=== PATIENT | female | born 1955 | race Caucasian/White ===

== ENCOUNTER 2017-08-13 21:25 | Emergency (ER) | payer MEDICAID, SELFPAY ==
--- NOTE | 2017-08-13 13:31 | EKG12_ITS ---
Test Reason : CP Blood Pressure : / mmHG Vent. Rate : 081 BPM Atrial Rate : 081 BPM P-R Int : 170 ms QRS Dur : 098 ms QT Int : 388 ms P-R-T Axes : 056 100 046 degrees QTc Int : 450 ms Normal sinus rhythm Normal ECG Confirmed by YI ANDERSEN, BALAJI ([id number]), greeting card editor ANDREW ROBINS ([id number]) on 08/17/2017 5:41:35 PM Referred By: YUE Confirmed By:BALAJI RICHMOND MD
--- NOTE | 2017-08-13 20:55 | RAD_ITS ---
STUDY: X-RAY CHEST REASON FOR EXAM: Female, 61 years old. Pressure IN chest TECHNIQUE: Single AP portable view of the chest. COMPARISON: None. FINDINGS: Chronic appearing increased interstitial lung markings. There is no demonstrated pleural abnormality. Normal size heart. Normal mediastinum and garrett. Normal visualized pulmonary arteries. Normal visualized aortic arch and descending thoracic aorta. Normal visualized thoracic spine. Normal visualized ribs, clavicles, and shoulders. There is no demonstrated abnormality of the visualized soft tissue structures of the upper abdomen. RAD/Chest 1 View (Portable) IMPRESSION: Normal x-ray examination of the chest. Electronically Signed: Agustin Covington MD at 21:16 EDT , Service support ,
--- NOTE | 2017-08-13 21:25 | DT_ITS ---
This patient was seen during an EMR downtime August 08, 2017 - August 15, 2017. This patient may have a combination of paper and electronic documentation or all paper documentation. All documentation is viewable within the e-chart portion of [facility] for each patient visit.
[2017-08-16 17:28] LABS: Red Blood Count 5.47 M/mm3 (4.2-5.4); White Blood Count 6.3 K/mm3 (4.4-11.0)
[2017-08-16 17:29] LABS: Absolute Lymphocyte Count 2.08 X10^3/ul (0.83-4.51); Absolute Neutrophil Count 3.5 X10^3/uL (2.0-7.7); Basophil# 0.04 X10^3/uL; Basophil% 0.6 % (0-1); Eosinophil# 0.08 X10^3/uL; Eosinophils% 1.3 % (0-5); Hematocrit 50.4 % (37-47); Hemoglobin 16.8 g/dl (12.0-15.0); Lymphocyte # 2.08 X10^3/ul (4.0); Lymphocyte % 33.2 % (19-41); Mean Corp Hgb Conc 33.3 g/gl (32-36); Mean Corpuscular Hgb 30.7 pg (27.0-32.0); Mean Corpuscular Volume 92.1 fL (81-99); Mean Platelet Vol. 10.9 fl (6.2-12.0); Monocyte% 9.6 % (0-10); Neutrophil # 3.45 X10^3/uL (2.7-7.7); Neutrophil % 55.1 % (47-70); POSITIVE COUNT NO; POSITIVE DIFFERENTIAL NO; POSITIVE MORPHOLOGY NO; Platelet Count 222 K/mm3 (150-450); RBC Distribution Width CV 13.6 % (11.6-14.6); RBC Distribution Width SD 45.3 fl (35.1-43.9)
[2017-08-16 20:06] LABS: BUN 10 mg/dL (7-18); BUN/Creat Ratio 15.2 RATIO (10-20); Calcium,Total 8.6 mg/dL (8.5-10.1); Creatinine, Serum 0.66 mg/dL (0.55-1.02); EST Glomerular Filtration Rate 97 mL/min (>60); Est Glom Filt Rate - Afr Amer 118 mL/min (>60); Glucose 87 mg/dL (74-106)
[2017-08-16 20:07] LABS: Anion Gap 11 (5-15); Chloride 106 mmol/L (98-107); Potassium 4.5 mmol/L (3.5-5.1); Sodium Level 141 mmol/L (136-145)
== END 2017-08-13 22:48 | disposition home or self-care (01) ==
LOC: ED 08-14 16:09
PROVIDERS: Emergency Provider Emergency Medicine
DX: R07.89 Other chest pain (principal); F10.129 Alcohol abuse with intoxication, unspecified; Y90.7 Blood alcohol level of 200-239 mg/100 ml
CPT/HCPCS: 36415; 71045; 80048; 80320; 84484; 85025; 93005; 96360; 99285; J7030; A4216; G0480

== ENCOUNTER 2019-01-13 12:00 | Emergency (ER) | payer MEDICAID, SELFPAY ==
[2019-01-13 12:01] VITALS: BP 170/110; PULSE 89; RESP 18; TEMP 36.8; O2SAT 96; BMI 33.6
--- NOTE | 2019-01-13 12:10 | EKG12_ITS ---
Test Reason : CP Blood Pressure : / mmHG Vent. Rate : 080 BPM Atrial Rate : 080 BPM P-R Int : 158 ms QRS Dur : 094 ms QT Int : 384 ms P-R-T Axes : 061 113 053 degrees QTc Int : 442 ms Normal sinus rhythm Right axis deviation Abnormal ECG Confirmed by YI ANDERSEN, BALAJI ([id number]), editor magazine JANUSZ FLORES ([id number]) on 01/16/2019 1:53:35 PM Referred By: LILLIAN Confirmed By:BALAJI RICHMOND MD
--- NOTE | 2019-01-13 12:11 | ED.VISSUMM ---
- ER Visit Summary Date of Service: 01/13/19 Chief Complaint: Chest pain History of Present Illness: The patient is a 63 F who presents with back pain and chest pain. It started about an hour ago. She was laying the baby down into the crib when she started having pain across her back. Goes from her scapula to scapula. It is worse with movement. The pain radiates to her chest. She feels a tightness in her chest. The pain in her back is sharp. Moving makes the pain worse. She has no nausea or vomiting. No shortness of breath. She took nothing for this at home. She has no cardiac history. Her only risk factor is that she is a smoker. Physical Examination: Vital signs reviewed. HEENT exam unremarkable. Heart is regular rate and rhythm without murmurs. Lungs are clear to auscultation. Abdomen is soft and nontender. Her back is not tender anywhere. Extremities reveal no edema. Peripheral pulses are equal. Skin exam normal. Neurologic exam normal. Test Results: EKG is sinus rhythm with no ST changes. Rate of 80. Laboratory studies normal. Glucose 109. Chest x-ray per my interpretation is unremarkable. Emergency Department Course and Treatment: Patient was given aspirin but continued to have pain so she is given Toradol. This pain likely originates in the back is muscular. She is now having some tightening in the back. Patient will be given Toradol here. I will give her naproxen and Flexeril for home. She will follow-up with her PCP. Treatment Plan: [] Disposition: Discharge Impression: Thoracic strain This note was generated with [employer] dictation software. It may contain incorrect words, spelling, and punctuation that were not noted in review of the chart prior to signing ED Disposition - Plan for ED Patient: Referrals: Care Physician,No Primary [Primary Care Provider] -
[2019-01-13 12:14] VITALS: O2SAT 95
[2019-01-13] MEDS: Aspirin 81 MG TAB.CHEW 324 MG PO (12:16)
--- NOTE | 2019-01-13 12:19 | RAD_ITS ---
STUDY: X-RAY CHEST REASON FOR EXAM: Female, 63 years old. Chest pain TECHNIQUE: Single AP portable view of the chest. COMPARISON: 08/13/2017 FINDINGS: The lungs are clear and expanded. There is no demonstrated pleural abnormality. Normal size heart. Normal mediastinum and garrett. Normal visualized pulmonary arteries. Normal visualized aortic arch and descending thoracic aorta. Normal visualized thoracic spine. Normal visualized ribs, clavicles, and shoulders. There is no demonstrated abnormality of the visualized soft tissue structures of the upper abdomen. RAD/Chest 1 View (Portable) IMPRESSION: Normal x-ray examination of the chest. Electronically Signed: Rambo Kaur DO at 13:35 EST Tel , Service support ,
[2019-01-13 12:31] LABS: Basophil# 0.05 X10^3/uL; Basophil% 0.7 % (0-1); Eosinophil# 0.11 X10^3/uL; Eosinophils% 1.6 % (0-5); Hematocrit 49.8 % (37-47); Hemoglobin 16.5 g/dL (12.0-15.0); Lymphocyte % 27.8 % (19-41); Mean Corp Hgb Conc 33.1 g/dL (32-36); Mean Corpuscular Hgb 30.5 pg (27.0-32.0); Mean Corpuscular Volume 92.1 fL (81-99); Mean Platelet Vol. 10.8 fl (6.2-12.0); Monocyte# 0.75 X10^3/uL; NRBC Flagged by Analyzer 0 % (0-5); Neutrophil % 58.6 % (47-70); Platelet Count 265 K/mm3 (150-450); RBC Distribution Width CV 13.1 % (11.6-14.6); RBC Distribution Width SD 44.1 fl (35.1-43.9); Red Blood Count 5.41 M/mm3 (4.2-5.4); White Blood Count 6.8 K/mm3 (4.4-11.0)
[2019-01-13 12:36] LABS: Anion Gap 6 (5-15); BUN 9 mg/dL (7-18); BUN/Creat Ratio 12.3 RATIO (10-20); Calcium,Total 9.4 mg/dL (8.5-10.1); Chloride 104 mmol/L (98-107); Creatinine, Serum 0.73 mg/dL (0.55-1.02); EST Glomerular Filtration Rate 86 mL/min (>60); Est Glom Filt Rate - Afr Amer 104 mL/min (>60); Glucose 109 mg/dL (74-106); Potassium 3.7 mmol/L (3.5-5.1); Sodium Level 138 mmol/L (136-145)
--- NOTE | 2019-01-13 13:02 | ED.DEP ---
ED Disposition - Plan for ED Patient: Disposition: Home or Assisted Living Instructions: Thoracic Strain Prescriptions: cycloBENZAPRine HCl [Flexeril] 10 mg PO TID PRN #20 tab PRN Reason: Muscle Spasm Prescription Printed Naproxen [Naprosyn] 500 mg PO BID PRN #20 tab Prescription Printed Referrals: Care Physician,No Primary [Primary Care Provider] -
[2019-01-13] MEDS: Ketorolac 30 MG/ML Syringe IV (13:16)
[2019-01-13 13:21] VITALS: BP 152/74; PULSE 72; RESP 16; O2SAT 95
== END 2019-01-13 13:40 | disposition home or self-care (01) ==
PROVIDERS: Emergency Provider Emergency Medicine
DX: S29.012A Strain of muscle and tendon of back wall of thorax, initial encounter (principal); F17.200 Nicotine dependence, unspecified, uncomplicated; X58.XXXA Exposure to other specified factors, initial encounter; Y93.89 Activity, other specified; Y92.003 Bedroom of unspecified non-institutional (private) residence as the place of occurrence of the external cause; Y99.8 Other external cause status
CPT/HCPCS: 71045; 80048; 84484; 85025; 93005; 96374; 99285; A4216

== ENCOUNTER 2023-08-07 15:30 | Emergency (ER) | payer MEDICARE, MEDICAID, SELFPAY ==
[2023-08-07 15:32] VITALS: BP 163/75; PULSE 73; RESP 16; TEMP 36.8; O2SAT 95; BMI 35.2
--- NOTE | 2023-08-07 15:45 | EDS_ITS ---
HPI History of Present Illness Chief Complaint: Back Narrative Narrative: 67-year-old female, past medical history of chronic back pain presents via EMS with a catch in her thoracic to lumbar back area. She states it feels like muscle cramping in a straight line across her back. She did not fall, but this happened when she tried to stand up from the couch. While she states that it is between her shoulder blades to triage, its actually a little bit lower in her thoracic spine. She denies any exacerbating or alleviating factors but certain positions make it worse and make her back muscles cramp and spasm. She denies any fevers or chills, no loss of bowel or bladder, no other symptoms. It does not radiate down her legs. It is in a straight line across her thoracic to lumbar spine. She states there are times when this happens and her back catches when she moves. Usually is her lower back. She has had to come to the emergency department previously. [facility] Medical History Back pain Bronchitis Home Medications ?Medication ?Instructions ?Recorded ?Last Taken ?Type cyclobenzaprine 10 mg tablet 10 mg PO TID PRN Muscle Spasm #20 01/13/19 Unknown Rx tabs naproxen 500 mg tablet 500 mg PO BID PRN #20 tabs 01/13/19 Unknown Rx cyclobenzaprine 10 mg tablet 10 mg PO TID PRN Muscle Spasm #20 08/07/23 Unknown Rx TABLETS naproxen 500 mg tablet (Naprosyn) 500 mg PO BID PRN pain #20 tabs 08/07/23 Unknown Rx Allergy/AdvReac Type Severity Reaction Status Date / Time No Known Allergies Allergy Verified 01/13/19 12:00 Social History Smoking Status: Current every day smoker tobacco type: cigarettes ROS ROS ED ROS Narrative Constitutional: No fever, no chills. HEENT: No sore throat. No neck pain. No loss of vision. No rhinorrhea. Cardiovascular: No chest pain. No palpitations. No pedal edema. Respiratory: No cough, no shortness of breath. Abdominal: No abdominal pain. No nausea. No vomiting. Genitourinary: No dysuria. No hematuria. Musculoskeletal: No myalgias. No arthralgias. Positive lower thoracic to upper lumbar back pain, worse with movement. Feels like muscle spasming and line across her back. Neurologic: No headaches. No dizziness. No lightheadedness. Skin: No rash. No change in color. Psychiatric: No depression. No anxiety. EXAM Physical Exam Narrative Exam Narrative: Afebrile. Vital signs noted. HEENT: Normocephalic. Atraumatic. PERRL, EOMI. Neck soft and supple. No point tenderness or step off. Cardiovascular: Regular rate and rhythm. No murmurs, rubs, or gallops appreciated. Respiratory: No tachypnea. Lungs clear to auscultation bilaterally. Gastrointestinal: Abdomen soft, nontender, with normoactive bowel sounds. No rebound or guarding. Neurological: Awake. Alert. Nonfocal, nonlateralizing. Skin: No rash. Normal color. No pallor. Musculoskeletal: No pedal edema. Full range of motion extremities. Mild tenderness to palpation lower thoracic paraspinal muscles. No vertebral point tenderness or bony step-off. Limited range of motion of torso. Const Vital Signs: 08/07/23 15:32 Temperature 98.2 F Temperature Source Oral Pulse Rate 73 Respiratory Rate 16 Blood Pressure 163/75 H Blood Pressure Mean 104 Pulse Ox 95 Oxygen Delivery Method Room Air MDM MDM MDM Narrative Medical decision making narrative: That is probably more musculoskeletal back pain and spasming. I have low suspicion for aortic dissection because her pain is too low and is not between her shoulder blades. Additionally, I have low suspicion for cauda equina syndrome or lumbar spine problems as she is neurovascular intact distally in the history and physical does not support this. I reviewed her prior records. She used to take cyclobenzaprine and naproxen. She will be given intramuscular Toradol and Norflex here and x-rays obtained of the thoracic spine. X-rays of the thoracic spine interpreted by myself independently shows no evidence of acute fracture, there are degenerative changes. I reviewed the radiology report which confirms my independent interpretation. I reviewed her prior records and she has been seen for back pain and strain in the past. She had been written for cyclobenzaprine and naproxen. Repeat examination at approximately 1710 does show that she feels improved. I feel she can be dischar [facility] safely home with follow-up to her primary care provider. She may need physical therapy, but she states that she had performed that remotely in the past and it hurt her too much so she stopped going. I did write her new prescriptions for Flexeril and naproxen. Return instructions to the emergency department were reviewed. Disposition is discharged home in stable condition. Radiography Diagnostic Testing: Clinical Impression(s) from Imaging Studies Thoracic Spine X-Ray 08/07/23 16:25 IMPRESSION: There are degenerative changes as noted above. Electronically Signed: Agustin Covington MD at 16:57 EDT , Discharge Plan Triage Chief Complaint: Back ED Provider: Dakota Smith Dx/Rx/DC Orders Clinical Impression: Strain of thoracic back region, Acute thoracic back pain, Muscle spasm of back Instructions: ED Back Pain (Acute or Chronic), ED Back Spasm, No Trauma, ED Back Sprain/Strain Prescriptions: New cyclobenzaprine 10 mg tablet 10 mg PO TID PRN (Reason: Muscle Spasm) Qty: 20 0RF naproxen [Naprosyn] 500 mg tablet 500 mg PO BID PRN (Reason: pain) Qty: 20 0RF No Action cyclobenzaprine 10 MG tablet 10 mg PO TID PRN (Reason: Muscle Spasm) Qty: 20 0RF naproxen 500 MG tablet 500 mg PO BID PRN Qty: 20 0RF Primary Care Provider: Care Physician,No Primary Referrals: Matt Frank MD [Med Staff - Active Staff] - 1 Week Care Physician,No Primary [Primary Care Provider] - Print Language: Azeri Disposition Disposition: Home, Self Care
[2023-08-07] MEDS: Ketorolac 60 MG/2 ML Vial IM (15:56)
[2023-08-07] MEDS: Orphenadrine 60 MG/2 ML Ampul IM (15:56)
--- NOTE | 2023-08-07 16:25 | RAD_ITS ---
STUDY: X-RAY - THORACIC SPINE REASON FOR EXAM: Female, 67 years old. Pain TECHNIQUE: XR Spine Thoracic 3 Views COMPARISON: None FINDINGS: Normal kyphosis of the thoracic spine. There is no substantial scoliosis. There is multilevel endplate spondylosis of the thoracic vertebrae. There is multilevel disc space narrowing of the thoracic spine. The soft tissue structures are unremarkable. RAD/Thoracic Spine 3 Views IMPRESSION: There are degenerative changes as noted above. Electronically Signed: Agustin Covington MD at 16:57 EDT ,
[2023-08-07 17:14] VITALS: BP 133/68; PULSE 62; RESP 18; TEMP 37; O2SAT 95
== END 2023-08-07 17:18 | disposition home or self-care (01) ==
PROVIDERS: Emergency Provider Emergency Medicine; Visit Provider Emergency Medicine
DX: S39.012A Strain of muscle, fascia and tendon of lower back, initial encounter (principal); M62.830 Muscle spasm of back; F17.210 Nicotine dependence, cigarettes, uncomplicated; M54.6 Pain in thoracic spine; G89.29 Other chronic pain; X58.XXXA Exposure to other specified factors, initial encounter
CPT/HCPCS: 72072; 96372; 99282

== ENCOUNTER 2024-03-20 07:28 | Emergency (ER) | payer MEDICARE, MEDICAID, SELFPAY ==
[2024-03-20 07:30] VITALS: BP 123/60; PULSE 77; RESP 16; TEMP 36.6; O2SAT 95
--- NOTE | 2024-03-20 07:30 | ED.RN ---
[facility]-[id number]
--- NOTE | 2024-03-20 08:13 | EX.ED.DYSGE1 ---
HPI History of Present Illness Chief Complaint: Numb/Ting Informant: patient Onset/Context/Timing Onset: Today Context: Sudden Onset Timing: Intermittent and Lasts (Few minutes) Quality: Weakness Location: Left hand Worsened by: Nothing Relieved by: Nothing Narrative Narrative: Patient presents with weakness to her left hand that began this morning. Patient states she woke up at 6:30 AM and she was fine. Patient states she was sitting and watching the news when she noted some tingling to her left hand. Patient states she had difficulty picking things up. Patient states she was able to move her fingers but they did not seem to work right. Patient states this only lasted for few minutes. Patient denies any numbness or weakness in her lower leg. Patient denies any weakness in her shoulder or elbow. Patient admits to a mild headache. Patient denies any chest pain or shortness of breath. Patient denies any nausea or vomiting. Patient denies any fevers or chills. [facility] Medical History Hx of fracture of lower leg Back pain Bronchitis Home Medications ?Medication ?Instructions ?Recorded ?Last Taken ?Type NK 03/20/24 Unknown History Allergy/AdvReac Type Severity Reaction Status Date / Time No Known Allergies Allergy Verified 03/20/24 07:30 Surgical History History of 2 sections Social History Smoking Status: Current every day smoker tobacco type: cigarettes ROS ROS ED Constitutional Constitutional ED: Denies chills or fever(s) Eyes Eyes: Reports blurry vision; Denies diplopia ENT ENT ED: Denies rhinorrhea or sore throat Cardiovascular Cardiovascular: Denies chest pain or palpitations Respiratory/Chest Respiratory/Chest: Denies cough or dyspnea Gastrointestinal Gastrointestinal: Denies nausea or vomiting Genitourinary Genitourinary ED: Denies dysuria or hematuria Musculoskeletal Musculoskeletal: Denies back pain or neck pain Integumentary Denies abscess or rash Neurologic Neurologic: Reports paresthesias LUE (Hand) and weakness; Denies headache(s) Allergic/Immunologic Allergic/Immunologic ED: Denies mouth swelling or urticaria EXAM Physical Exam Const Vital Signs: 03/20/24 07:30 03/20/24 07:40 03/20/24 09:29 Temperature 97.8 F Temperature Source Oral Pulse Rate 77 73 Respiratory Rate 16 16 Respiratory Effort Normal Non-Labored Respiratory Pattern Normal Blood Pressure 123/60 H 131/76 H Blood Pressure Mean 81 94 Pulse Ox 95 94 Oxygen Delivery Method Room Air Room Air Positive well nourished and well developed General Appearance ED: well developed and NAD HEENT Reports moist mucous membranes Neck supple and no JVD Resp normal respiratory effort and clear to auscultation bilaterally Cardio regular rate and regular rhythm GI non-tender and non-distended Palpation: soft Extremity normal to inspection General Extremety ED: Negative for edema or tenderness General Extremity: Negative for edema Neuro oriented x3, CN's II-XII intact bilaterally and no sensory deficits noted Sensorium / Orientation: alert Motor Exam: strength 5/5 throughout Psych mental status grossly normal MDM MDM MDM Narrative Medical decision making narrative: Differential diagnosis includes TIA, neuropraxia, paresthesias, electrolyte abnormality, and anxiety. CT scan of the brain will be obtained to assess for intracranial bleeding and stroke. CBC will be obtained to assess for leukocytosis and anemia. Basic metabolic profile will be obtained to assess for electrolyte abnormality and renal function. Urinalysis will be obtained to assess for urinary tract infection and hematuria. Lab Data Attestation: I reviewed the patient's lab results. Lab results narrative: CBC was reviewed and was essentially within normal limits. Basic metabolic profile was reviewed and was within normal limits. Urinalysis was reviewed. There is no evidence of urinary tract infection or hematuria. Labs: Laboratory Results - last 24 hr 03/20/24 03/20/24 08:00 10:24 WBC 6.9 RBC 5.16 Hgb 15.5 H Hct 47.3 H MCV 91.7 MCH 30.0 MCHC 32.8 RDW Std Deviation 42.6 RDW Coeff of Zita 12.6 Plt Count 258 MPV 10.8 Immature Gran % (Auto) 0.300 Neut % (Auto) 55.4 Lymph % (Auto) 27.0 [place] % (Auto) 12.0 H Eos % (Auto) 4.4 Baso % (Auto) 0.9 Absolute Neuts (auto) 3.8 Absolute Lymphs (auto) 1.85 Nucleated RBC % 0 Sodium 139 Potassium 3.8 Chloride 106 Carbon Dioxide 29.0 Anion Gap 4 L BUN 12 Creatinine 0.62 Est GFR (MDRD) Af Amer 125 Est GFR (MDRD) Non-Af 103 BUN/Creatinine Ratio 19.5 Glucose 106 Calcium 9.0 Urine Color Yellow Urine Clarity Clear Urine pH 6.0 Ur Specific Show Low 1.015 Urine Protein Negative Urine Glucose (UA) Normal Urine Ketones Negative Urine Occult Blood Negative Urine Nitrite Negative Urine Bilirubin Negative Urine Urobilinogen Normal Ur Leukocyte Esterase Negative Urine RBC 0 SEEN Urine WBC 0 SEEN Ur Squamous Epith Cells 0 SEEN Urine Bacteria 0 SEEN Urine Mucus 0 SEEN Radiography Diagnostic Testing: Clinical Impression(s) from Imaging Studies Brain CT 03/20/24 09:48 IMPRESSION: Sinusitis as described. No acute intracranial abnormality is seen. Electronically Signed: Dakota Jaime MD at 10:15 EST , CT scan of the brain was obtained. There is no acute intracranial abnormality. There is some mild thickening of the ethmoid and left maxillary sinuses. This was interpreted by the radiologist and was also independently reviewed by myself. Treatment and Re-Evaluation :: Patient was given a dose of Tylenol here. Patient was advised of her findings. Patient was instructed to follow-up with her primary care physician in 5 to 7 days. Patient was instructed to return if worse in any way. Patient understood and was agreeable with the plan. All questions were answered. Discharge Plan Triage Chief Complaint: Numb/Ting Other Complaint: Hypertension ED Provider: Ashwin Myers Dx/Rx/DC Orders Clinical Impression: Paresthesias in left hand, Elevated blood pressure reading, Tobacco use disorder Instructions: ED Paraesthesias Prescriptions: No Action NK Primary Care Provider: Care Physician,No Primary Referrals: Care Physician,No Primary [Primary Care Provider] - Liz Bose DO Elio [[facility]] - 5-7 Days Print Language: Armenian Disposition Disposition: Home, Self Care
[2024-03-20 08:30] LABS: Absolute Lymphocyte Count 1.85 X10^3/uL (0.83-4.51); Absolute Neutrophil Count 3.8 X10^3/uL (2.0-7.7); Basophil# 0.06 X10^3/uL; Basophil% 0.9 % (0-1); Eosinophils% 4.4 % (0-5); Hematocrit 47.3 % (37-47); Hemoglobin 15.5 g/dL (12.0-15.0); Lymphocyte # 1.85 X10^3/ul (0.83-4.51); Mean Corp Hgb Conc 32.8 g/dL (32-36); Mean Corpuscular Volume 91.7 fL (81-99); Mean Platelet Vol. 10.8 fl (6.2-12.0); Monocyte# 0.82 X10^3/uL; NRBC Flagged by Analyzer 0 % (0-5); Neutrophil # 3.81 X10^3/uL (2.7-7.7); Neutrophil % 55.4 % (47-70); Platelet Count 258 K/mm3 (150-450); RBC Distribution Width CV 12.6 % (11.6-14.6); RBC Distribution Width SD 42.6 fl (35.1-43.9); Red Blood Count 5.16 M/mm3 (4.2-5.4); White Blood Count 6.9 K/mm3 (4.4-11.0)
[2024-03-20 08:42] LABS: Anion Gap 4 (5-15); BUN 12 mg/dL (7-18); BUN/Creat Ratio 19.5 RATIO (10-20); Chloride 106 mmol/L (98-107); Creatinine, Serum 0.62 mg/dL (0.55-1.02); EST Glomerular Filtration Rate 103 mL/min (>60); Est Glom Filt Rate - Afr Amer 125 mL/min (>60); Glucose 106 mg/dL (74-106); Potassium 3.8 mmol/L (3.5-5.1); Sodium Level 139 mmol/L (136-145)
--- NOTE | 2024-03-20 09:05 | CM.ED ---
Social work Reason for referral: no PCP Referral source: case find This SW identified patient's lack of PCP and need for resources. This SW entered patient's room, introducing self and role at [facility]. Patient accepted SW visit and expressed what brought patient into [facility] ED today. Patient stated having pain on the right side of patient's head and then experiencing left hand weakness. Patient expressed fear of having a possible stroke, so patient reports alerting patient's 13 year old grandson (who lives with patient) to alert patient's daughter, Fatmata. Patient reports not having a phone due to not trusting those things. Patient reported having a number for patient's tablet that works on [employer] and patient agreed to provide this number in case of emergencies ([phone]); number added to GLOG. Patient stated patient's daughter lives down the road in another apartment and would come get patient from the ED when necessary. Patient confirmed not having a PCP due to not needing to go to a doctor often. Patient stated patient's daughter needing a PCP as well. Patient accepted resources of [facility] Provider Directory and Shreya Philip information. Patient stated patient's daughter would pick a PCP for both patient and patient's daughter. Patient denied further resources at this time. Gabriela Landrum, CRABBING MACHINE OPERATOR, [employer] SEWER
[2024-03-20 09:29] VITALS: BP 131/76; PULSE 73; RESP 16; O2SAT 94
--- NOTE | 2024-03-20 09:48 | CT_ITS ---
STUDY: CT BRAIN WITHOUT CONTRAST REASON FOR EXAM: Female, 68 years old. Paresthesias. Hypertension and headaches. 3 month history of visual disturbances. RADIATION DOSAGE (If Supplied By Facility): CTDIvol = ( 44.99 ) mGy, DLP = ( 829.85 ) mGycm TECHNIQUE: Transaxial CT imaging of the brain was performed without administration of intravenous contrast material. Individualized dose optimization techniques were used for this CT. COMPARISON: Comparison is made with prior study dated September 05, 2016. FINDINGS: Normal soft tissue structures. Normal calvarium. Normal size ventricles and extra-axial spaces for the patient''s age. Normal white matter tracts of the cerebral hemispheres. Normal basal ganglia and thalami. Normal brainstem. Normal cerebellum. There is no intracranial hemorrhage. There are no findings of an acute ischemic infarction. Mucosal thickening of the ethmoid sinuses and left maxillary sinus. Mucosal thickening of the left sphenoid sinus. CT/Brain/Head without Contrast IMPRESSION: Sinusitis as described. No acute intracranial abnormality is seen. Electronically Signed: Dakota Jaime MD at 10:15 EST ,
[2024-03-20] MEDS: Acetaminophen 500 MG Tablet 1000 MG PO (10:11)
[2024-03-20 10:31] LABS: Bacteria 0 SEEN /hpf (None Seen); Mucous, Urine 0 SEEN /hpf (<or=2+); Red Blood Cells-Urine 0 SEEN /hpf (0-5); Squamous Epithelial Cells - UA 0 SEEN /hpf (5-10); White Blood Cells 0 SEEN /hpf (0-5)
[2024-03-20 10:34] LABS: Color, Urine Yellow (Yellow); Glucose, Dipstick Normal (Normal); Ketone-Dipstick Negative (Negative); Leukocyte Esterase-Dipstick Negative /ul (Negative); Nitrite-Dipstick Negative (Negative); Occult Blood-Urine Negative /ul (Negative); Protein-Dipstick Negative (Negative); Specific Gravity, Urine 1.015 (1.002-1.030); Urine Bilirubin Dipstick Negative (Negative); Urine Clarity Clear (Clear); Urine Urobilinogen Normal (Normal)
[2024-03-20 11:05] VITALS: BP 139/64; PULSE 64; RESP 16; TEMP 36.6; O2SAT 94
== END 2024-03-20 11:06 | disposition home or self-care (01) ==
PROVIDERS: Emergency Provider Emergency Medicine; Visit Provider Emergency Medicine
DX: R20.2 Paresthesia of skin (principal); R03.0 Elevated blood-pressure reading, without diagnosis of hypertension; R51.9 Headache, unspecified; F17.210 Nicotine dependence, cigarettes, uncomplicated
CPT/HCPCS: 70450; 80048; 81001; 85025; 99285; A4216